=== PATIENT | female | born 1995 | race Caucasian/White ===

== ENCOUNTER → 2021-12-02 11:57 | Outpatient (CLI) | payer BC, SELFPAY ==
[2021-12-02 19:22] LABS: Alanine Aminotransferase 14 U/L (12-78); Albumin Level 4.9 g/dl (3.5-5.0); Albumin/Globulin Ratio 1.9 (1.1-1.8); Alkaline Phosphatase 43 U/L (38-126); Anion Gap 14.1 mEq/L (5-15); Aspartate Amino Transferase 19 U/L (14-36); Bilirubin,Total 0.7 mg/dl (0.2-1.3); Blood Urea Nitrogen 10 mg/dl (7-17); Calcium 9.6 mg/dl (8.4-10.2); Carbon Dioxide 26 mmol/L (22.0-30.0); Chloride 105 mmol/L (98-107); Estimated Glomerular Filt Rate 102 ml/min (>60); GFR (African American) 123 ML/MIN (>60); Globulin 2.6 g/dL (1.3-3.2); Glucose 74 mg/dl (74-100); Potassium 4.1 mmoL/L (3.5-5.1); Sodium 141 mmol/L (136-145); Total Protein,Serum 7.5 g/dl (6.3-8.2)
[2021-12-02 19:27] LABS: Hemoglobin A1C 4.8 % (4.0-6.0)
[2021-12-04 11:13] LABS: C-Peptide 3.8 ng/mL (1.1-4.4)
== END ==
PROVIDERS: PCP Emergency Medicine; Visit Provider Family Medicine
DX: R42 Dizziness and giddiness (principal); E16.2 Hypoglycemia, unspecified; Z79.899 Other long term (current) drug therapy
CPT/HCPCS: 80053; 83036; 84681